=== PATIENT | female | born 1950 | race Hispanic/Latino ===

== ENCOUNTER 2017-08-23 18:40 | Observation (INO) | payer MEDICARE ==
[~2017-08-23] VITALS: Ht 162.6 cm; Wt 70.5 kg
[~2017-08-23 18:40] MED LIST: AMLO-515 PO; ASPI-1012 PO; BEPO10DR OD; FENO54TA6 PO; HYDR-309 PO; METF10004 PO; latanoprost OU
[2017-08-23] MEDS ORDERED: SODIUM CHLORIDE 0.9% 1000ML 1,000 ML IV ONE ×2 (19:39→20:32)
[2017-08-23 19:41] LABS: BASOPHILS % (AUTO) 0.4 % (0.0-5.0); EOSINOPHILS % (AUTO) 0.2 % (0.0-8.0); HEMATOCRIT 37.4 % (36-48); LYMPHOCYTES % (AUTO) 8.4 % (21.0-51.0); MEAN CORPUSCULAR HEMOGLOBIN 31.4 pg (27.0-33.0); MEAN CORPUSCULAR HGB CONC 34.5 g/dL (32.0-36.0); MEAN CORPUSCULAR VOLUME 90.8 fL (79-99); PLATELET COUNT (AUTO) 321 K/uL (130-400); RED BLOOD CELL COUNT(AUTO) 4.12 MIL/uL (4.00-5.50); WHITE BLOOD COUNT (AUTO) 8.7 K/uL (4.8-10.8)
[2017-08-23 19:52] LABS: APPEARANCE,URINE Clear (CLEAR); BILIRUBIN,URINE Negative (NEGATIVE); COLOR,URINE Yellow (YELLOW); GLUCOSE, URINE (UA) TRACE mg/dL (NEGATIVE); KETONES,URINE Negative (NEGATIVE); LEUKOCYTE ESTERASE ,URINE Trace (NEGATIVE); NITRATE,URINE Negative (NEGATIVE); OCCULT BLOOD,URINE Negative (NEGATIVE); PROTEIN,URINE Negative (NEGATIVE); UROBILINOGEN,URINE 0.2 mg/dL (0.2-1.0)
[2017-08-23 19:54] LABS: CREATININE 0.9 mg/dL (0.5-1.5); INR 0.95 (0.85-1.15); PARTIAL THROMBOPLASTIN TIME 24.2 SEC (26.3-35.5); POTASSIUM 3.1 mmol/L (3.5-5.1)
[2017-08-23] MEDS ORDERED: METOCLOPRAMIDE 10 MG/2 ML VIAL ONE (19:57)
[2017-08-23 19:58] LABS: ALBUMIN 3.9 g/dL (3.5-5.0); BILIRUBIN,TOTAL 0.2 mg/dL (0.2-1.0); TOTAL PROTEIN, SERUM 7.5 g/dL (6.0-8.3)
[2017-08-23 20:06] LABS: BACTERIA,URINE Rare /HPF (None Seen); RBC,URINE 0-1 /HPF (0-1); SQUAMOUS EPITHELIAL CELL,UR Rare /LPF (0-2)
[2017-08-23] MEDS ORDERED: POTASSIUM BICARB/CIT AC 25 MEQ TABLET.EFF ONE (20:22)
[2017-08-23] MEDS ORDERED: ONDANSETRON HCL 4 MG/2 ML VIAL ONE (20:32)
[2017-08-23] MEDS ORDERED: IOPAMIDOL-370 100 ML VIAL IV ONE (21:03)
[2017-08-23] MEDS ORDERED: ASPIRIN 325 MG TABLET ONE (22:05)
[2017-08-23] MEDS ORDERED: MAGNESIUM 2GM PREMIX 50ML 50 ML IV ONE (22:06)
[2017-08-23] MEDS ORDERED: DiphenhydrAMINE HCL 50 MG/ML VIAL ONE (22:20)
[2017-08-23] MEDS ORDERED: HYDRALAZINE HCL 20 MG/ML VIAL IV PRN (23:30)
[2017-08-23] MEDS ORDERED: ACETAMINOPHEN 325 MG TAB PO PRN ×2 (23:30)
[2017-08-23] MEDS ORDERED: LACTULOSE 20 GM/30 ML UDCUP PO PRN (23:30)
[2017-08-23] MEDS ORDERED: CEFTRIAXONE 1GM/D5W 50ML 50 ML IV SCH (23:30)
[2017-08-23] MEDS ORDERED: POTASSIUM CHLORIDE 20MEQ/100ML 100 ML IV PRN (23:30)
[2017-08-23] MEDS ORDERED: NITROGLYCERIN 0.4 MG SL TAB SL PRN (23:30)
[2017-08-23] MEDS ORDERED: KETOROLAC TROMETHAMINE 15MG/ML IV PRN (23:30)
[2017-08-23] MEDS ORDERED: GLUCAGON 1MG KIT 1 MG ML IM PRN (23:30)
[2017-08-23] MEDS ORDERED: DEXTROSE 50%-WATER 50 ML DISP.SYRIN IV PRN (23:30)
[2017-08-23] MEDS ORDERED: POTASSIUM CHLORIDE 10% ELIXIR 20 MEQ/15 ML UDCUP PO PRN (23:30)
[2017-08-23] MEDS ORDERED: LIDOCAINE HCL-MPF 1% 2ML VIAL IVP PRN (23:30)
[2017-08-23] MEDS ORDERED: MAGNESIUM SULFATE 1 GM in SODIUM CHLORIDE 0.9% 50 ML IV SCH (23:30)
[2017-08-24] VITALS (8 sets, daily range): BP systolic 136–149; BP diastolic 69–82
[2017-08-24] MEDS ORDERED: CEFTRIAXONE SODIUM 1 GM ONE (00:19)
[2017-08-24] MEDS: CEFTRIAXONE SODIUM 1 GM IVP SCH (01:00)
[2017-08-24] MEDS ORDERED: HYDROCODONE/ACETAMINOPHEN 5/325 MG TAB PO PRN (07:15)
[2017-08-24] MEDS ORDERED: MAGNESIUM 2GM PREMIX 50ML 50 ML IV SCH (07:15)
[2017-08-24] MEDS: INSULIN HUMULIN R 100 UNIT/ML 3ML SQ SCH ×4 (07:30→21:00)
[2017-08-24] MEDS: METFORMIN HCL 500 MG TABLET PO SCH ×2 (08:00→17:20)
[2017-08-24 08:37] LABS: MAGNESIUM 1.9 mg/dL (1.80-2.40); POTASSIUM 3.1 mmol/L (3.5-5.1)
[2017-08-24] MEDS: ONDANSETRON HCL 4 MG/2 ML VIAL IV PRN ×2 (08:44→18:47)
[2017-08-24] MEDS ORDERED: AMLODIPINE OLMESARTAN PO SCH (09:00)
[2017-08-24] MEDS ORDERED: BEPREVE OD SCH (09:00)
[2017-08-24] MEDS ORDERED: **HM** FENOFIBRATE 54MG PO SCH (09:00)
[2017-08-24] MEDS: FAMOTIDINE 20MG TAB 20 MG TAB PO SCH ×2 (12:44→22:06)
[2017-08-24] MEDS: POTASSIUM CHLORIDE 20 MEQ ERTAB PO PRN ×3 (12:47→22:06)
[2017-08-24] MEDS ORDERED: ASPIRIN 325 MG TABLET PO SCH (17:00)
[2017-08-24] MEDS ORDERED: LATANOPROST 2.5 ML DROPS OU SCH (21:00)
[2017-08-25] MEDS: CEFTRIAXONE SODIUM 1 GM IVP SCH (00:52)
[2017-08-25 03:30] VITALS: BP 138/66
[2017-08-25 03:57] LABS: CREATININE 0.7 mg/dL (0.5-1.5); MAGNESIUM 2.4 mg/dL (1.80-2.40); POTASSIUM 3.5 mmol/L (3.5-5.1)
[2017-08-25] MEDS: INSULIN HUMULIN R 100 UNIT/ML 3ML SQ SCH ×2 (05:52→11:30)
[2017-08-25] MEDS: POTASSIUM CHLORIDE 20 MEQ ERTAB PO PRN ×2 (06:16→08:29)
[2017-08-25] MEDS: FAMOTIDINE 20MG TAB 20 MG TAB PO SCH (08:25)
[2017-08-25] MEDS: METFORMIN HCL 500 MG TABLET PO SCH (08:25)
[2017-08-25 09:05] VITALS: BP 138/82
[2017-08-25 12:05] VITALS: BP 133/66
== END 2017-08-25 12:35 | disposition home or self-care (01) ==
LOC: EDH 18:40 → EDHIP 21:30 → 3AH 23:58
PROVIDERS: ADMIT Internal Medicine; ATTEND Internal Medicine
DX: N39.0 Urinary tract infection, site not specified (principal); E11.9 Type 2 diabetes mellitus without complications; I10 Essential (primary) hypertension; E87.6 Hypokalemia; E83.42 Hypomagnesemia; E78.5 Hyperlipidemia, unspecified; Z96.652 Presence of left artificial knee joint; Z82.49 Family history of ischemic heart disease and other diseases of the circulatory system
CPT/HCPCS: 36415 ×3; 70450; 70544; 70547; 70551; 71275; 80048; 80053; 81001; 82948 ×8; 83605 ×2; 83690; 83735 ×3; 84132; 84484; 85025; 85378; 85610; 85730; 93005; 93306; 93880; 96374; 96375 ×2; 96376; 97161; 99285; A4218; A4510; G0378 ×39; G0480; G8978; G8979; G8980; G8981; G8982; G8983; J0696 ×3; J1200; J2405 ×3; J2765; J3475 ×2; J7030 ×2; Q9967

== ENCOUNTER 2017-11-10 16:38 | Emergency (ER) | payer MEDICARE ==
[2017-11-10 17:43] LABS: BASOPHILS % (AUTO) 0.7 % (0.0-5.0); EOSINOPHILS % (AUTO) 4.5 % (0.0-8.0); HEMATOCRIT 37.6 % (36-48); LYMPHOCYTES % (AUTO) 15.5 % (21.0-51.0); MEAN CORPUSCULAR HEMOGLOBIN 31.3 pg (27.0-33.0); MEAN CORPUSCULAR VOLUME 89.3 fL (79-99); MONOCYTES % (AUTO) 8.8 % (3.0-13.0); NEUTROPHILS % (AUTO) 70.5 % (40.0-77.0); NUCLEATED RED BLOOD CELLS 0.2 % (0.0-0.19); PLATELET COUNT (AUTO) 310 K/uL (130-400); RED BLOOD CELL COUNT(AUTO) 4.21 MIL/uL (4.00-5.50); RED CELL DISTRIBUTION WIDTH 13.6 % (11.0-15.5); WHITE BLOOD COUNT (AUTO) 9.3 K/uL (4.8-10.8)
[2017-11-10] MEDS ORDERED: KETOROLAC TROMETHAMINE 30MG/ML ONE (17:47)
[2017-11-10 17:54] LABS: CREATININE 0.8 mg/dL (0.5-1.5); POTASSIUM 3.4 mmol/L (3.5-5.1)
[2017-11-10] MEDS ORDERED: DEXAMETHASONE SOD PHOSPHATE 10MG/ML 1ML VIAL ONE (18:13)
== END 2017-11-10 18:22 | disposition home or self-care (01) ==
LOC: EDH 16:38
DX: M25.461 Effusion, right knee (principal); M17.5 Other unilateral secondary osteoarthritis of knee; E11.9 Type 2 diabetes mellitus without complications; I10 Essential (primary) hypertension; E78.5 Hyperlipidemia, unspecified; Z96.652 Presence of left artificial knee joint
CPT/HCPCS: 36415; 73562; 80048; 85025; 96374; 96375; 99285; J1100; J1885

== ENCOUNTER 2020-03-25 14:04 | Observation (INO) | payer OTHER, MEDICARE ==
[~2020-03-25] VITALS: Ht 167.6 cm; Wt 77.3 kg
[~2020-03-25 14:04] MED LIST changes: +ATOR20TA65 PO; -BEPO10DR OD; +BEPO10DR OP; -HYDR-309 PO; +HYDR-4457 PO; +METF-446 PO; -METF10004 PO
[2020-03-25 14:31] LABS: BASOPHILS % (AUTO) 0.6 % (0.0-5.0); EOSINOPHILS % (AUTO) 0.5 % (0.0-8.0); HEMATOCRIT 38.5 % (36-48); LYMPHOCYTES % (AUTO) 12.2 % (21.0-51.0); MEAN CORPUSCULAR HEMOGLOBIN 31.4 pg (27.0-33.0); MEAN CORPUSCULAR HGB CONC 34.5 g/dL (32.0-36.0); MEAN CORPUSCULAR VOLUME 90.8 fL (79-99); MONOCYTES % (AUTO) 10.1 % (3.0-13.0); NEUTROPHILS % (AUTO) 76.1 % (40.0-77.0); PLATELET COUNT (AUTO) 321 K/uL (130-400); RED BLOOD CELL COUNT(AUTO) 4.24 MIL/uL (4.00-5.50); RED CELL DISTRIBUTION WIDTH 12.7 % (11.0-15.5); WHITE BLOOD COUNT (AUTO) 8.9 K/uL (4.8-10.8)
[2020-03-25 14:40] LABS: POTASSIUM 3.5 mmol/L (3.5-5.1)
[2020-03-25 14:44] LABS: ALBUMIN 4.2 g/dL (3.5-5.0); BILIRUBIN,TOTAL 0.3 mg/dL (0.2-1.0); TOTAL PROTEIN, SERUM 7.9 g/dL (6.0-8.3)
[2020-03-25 14:58] LABS: B-TYPE NATRIURETIC PEPTIDE < 5 pg/mL (0-100)
[2020-03-25] MEDS ORDERED: ASPIRIN 325MG EC TAB 325 MG TABLET.DR PO ONE (15:14)
[2020-03-25] MEDS ORDERED: NITROGLYCERIN 1GM/1 INCH PACKET TD ONE (15:15)
[2020-03-25] MEDS ORDERED: ACETAMINOPHEN 325 MG TAB ONE (15:15)
[2020-03-25] MEDS ORDERED: IOHEXOL 350 MG/ML 100ML INFUS..BTL IV ONE (17:04)
[2020-03-25] MEDS ORDERED: MECLIZINE HCL 25 MG TABLET ONE (18:35)
[2020-03-25] MEDS ORDERED: SODIUM CHLORIDE 0.9% 500ML 500 ML IV ONE (18:44)
[2020-03-25] MEDS ORDERED: ONDANSETRON HCL 4 MG/2 ML VIAL IVP PRN (19:45)
[2020-03-25] MEDS: SODIUM CHLORIDE 0.9% 1000ML 1,000 ML IV SCH (19:45)
[2020-03-25] MEDS ORDERED: ACETAMINOPHEN 325 MG TAB PO PRN (19:45)
[2020-03-25 22:41] LABS: APPEARANCE,URINE Clear (CLEAR); BILIRUBIN,URINE Negative (NEGATIVE); COLOR,URINE Yellow (YELLOW); GLUCOSE, URINE (UA) Negative (NEGATIVE); KETONES,URINE Negative (NEGATIVE); LEUKOCYTE ESTERASE ,URINE Negative (NEGATIVE); NITRATE,URINE Negative (NEGATIVE); OCCULT BLOOD,URINE Negative (NEGATIVE); PH,URINE 5.5 (5.0-8.0); PROTEIN,URINE Negative (NEGATIVE)
[2020-03-26] VITALS (8 sets, daily range): BP systolic 134–157; BP diastolic 68–88
[2020-03-26 03:19] LABS: HEMATOCRIT 35.4 % (36-48); MEAN CORPUSCULAR HEMOGLOBIN 31.3 pg (27.0-33.0); MEAN CORPUSCULAR HGB CONC 34.2 g/dL (32.0-36.0); MEAN CORPUSCULAR VOLUME 91.5 fL (79-99); RED BLOOD CELL COUNT(AUTO) 3.87 MIL/uL (4.00-5.50); RED CELL DISTRIBUTION WIDTH 12.9 % (11.0-15.5)
[2020-03-26 03:40] LABS: ALANINE AMINOTRANSFERASE 19 U/L (12-78); ALBUMIN 3.7 g/dL (3.5-5.0); ASPARTATE AMINOTRANSFERASE 16 U/L (10-37); BILIRUBIN,TOTAL 0.6 mg/dL (0.2-1.0); CARBON DIOXIDE 25 mmol/L (21-32); CHLORIDE 106 mmol/L (101-111); CREATINE KINASE, TOTAL 65 U/L (21-232); CREATININE 0.7 mg/dL (0.5-1.5); GLOMERULAR FILTR. RATE CALC 88 mL/min (>60); GLUCOSE,RANDOM 139 mg/dL (70-105); MYOGLOBIN 26 ng/mL (10-92); POTASSIUM 3.8 mmol/L (3.5-5.1); SODIUM SERUM 141 mmol/L (136-145); TOTAL PROTEIN, SERUM 6.9 g/dL (6.0-8.3); TROPONIN I < 0.04 ng/mL (0.00-0.06); UREA NITROGEN, BLOOD 12 mg/dL (7-18)
--- NOTE | 2020-03-26 05:15 | NUR ---
PATIENT PLEASANTLY CONFUSED AT THIS TIME. REORIENTATED TO PLACE, DATE AND TIME. FOLLOWS COMMANDS. NO COMPLAINTS OF PAIN VOICED AT THIS TIME. RESP EVEN AND UNLABORED. NO SOB NOTED. O2 ON AT 2LPM VIA NASAL CANNULA. VITALS STABLE. AFEBRILE. GRAIN PROCESSOR SPOKE WITH DAUGHTER KATIE AND SISTER ABOUT PATIENT STATUS. BOTH ARE AWARE. PER FAMILY, THEY STATE SHE HAS BOUTS OF CONFUSION AT TIMES. NO SIGNS OF DISTRESS NOTED. FALL PRECAUTIONS IN PLACE DUE TO POOR SAFETY AWARENESS. BED ALARM ON. CALL LIGHT WITHIN REACH. WILL CONTINUE TO E OBSERVED. Addendum: 03/26/20 at 0518 by YULIANA PAIGE RN RN Amended: Links added.
[2020-03-26] MEDS: SODIUM CHLORIDE 0.9% 1000ML 1,000 ML IV SCH ×3 (05:45→21:21)
[2020-03-26] MEDS: PANTOPRAZOLE SODIUM 40 MG TABLET.DR PO SCH (09:56)
[2020-03-26] MEDS ORDERED: PHARMACY COMMUNICATION MISC PRN (15:15)
[2020-03-26] MEDS ORDERED: CHLORDIAZEPOXIDE HCL 25 MG CAP PO PRN (15:15)
[2020-03-26] MEDS ORDERED: HYDROCODONE/ACETAMINOPHEN 5/325 MG TAB PO PRN (15:30)
[2020-03-26] MEDS ORDERED: DIATR MEGLU/DIATRIZOATE SODIUM 30 ML BOTTLE ONE (15:57)
--- NOTE | 2020-03-26 16:00 | NUR ---
CM MET W PATIENT FOR D/C PLANNING PATIENT APPEARS CONFUSED, AND HER CONVERSATIONS ISHARD TO UNDERSTAND PATIENT STATES SHE LIVES ALONE AND SHE DRIVES HERSELF TO THE [facility], STATES DOES ALL HER OWN HOUSEWORK AND ADLS CALL TO DAUGHTER KATIE ON FACE SHEET TO CONFIRM DTER STATES YES PATIENT LIVES ALONE, BUT DTR GOES EVERY DAY TO ASSIST WITH ADLS AND HOUSEWORK, ERRANRS, BILLS ETC. IS PROVIDER 21 HRS, BUT IS THERE ALL THE TIME ,STATES PATIENT WAS 10 YEARES AGO, DRINKS ALMOST DAILY AND IS PROBABLY FORGETFUL RELATED TO THAT. HAS TROUBLE CARRYING A CONVERSATION FOR A WHILE. KATIE STATES PLAN WILL BE FOR PATIENT TO RETURN TO SAME SETTING. CM TO FOLLOW
[2020-03-26] MEDS: INSULIN HUMULIN R 100 UNIT/ML 3ML SQ SCH ×2 (16:30→21:00)
--- NOTE | 2020-03-26 16:33 | NUR ---
RD NOTIFICATION Pt admitted for Vertigo. 75gm CC, Heart Healthy diet order in place. History of DM. RD notification for poor PO intake. Overweight status, okay for age. LBM 03/25. PMH R/L-TKA, HTN, DM. Monitored labs: BG 139. Recommend Glucerna BID Recommend continue current diet order RD to continue to monitor. Please notify as additional nutrition concerns arise. Thank you.
[2020-03-26] MEDS: THIAMINE HCL 100 MG, FOLIC ACID 1 MG, M.V.I. IV [ADULT] 10 ML in SODIUM CHLORIDE 0.9% 1... IV SCH (17:37)
[2020-03-26] MEDS ORDERED: ATORVASTATIN CALCIUM 20 MG TABLET PO SCH (21:00)
[2020-03-26] MEDS: BEPOTASTINE BESILATE OP SCH (21:00)
[2020-03-26] MEDS ORDERED: ***HM***(Fenofibrate 54 MG) PO SCH (21:00)
[2020-03-26] MEDS ORDERED: LATANOPROST 2.5 ML DROPS OU SCH (21:00)
--- NOTE | 2020-03-26 22:56 | NUR ---
NOTE 2240 PATIENT GETS UP WITHOUT CALLING. BED ALARM HAS BEEN WARNING STAFF OF THIS BEHAVIOR. PATIENT SAYS SHE NEED TO GO TO BATHROOM. ASSISTED HER THERE. WHEN DONE WAS ASSISTING HER BACK WHEN SHE SUDDENLY TURNED AND LOST HER BALANCE. TRIED TO HELP HER BUT WAS ONLY ABLE TO ASSIST HER TO FLOOR. TRIED TO HAVE PATIENT STAND, BUT SHE WAS NOT ABLE. GOT MORE HELP AND SHE WAS THEN ABLE TO STAND AND WALK THE REST OF THE WAY TO BED. ASSESED HER AND SAW NO OBVIOUS INJURY OR BRUISING. PATIENT SAYS IT HURT AT TIME OF FALL, BUT HAS NO PAIN NOW. BP 159/82 HR 92 RR 20 O2 SAT 97%. REORIENTED HER AGAIN TO PLACE AND SITUATION. EXPLAINED AGAIN THE USE OF CALL LIGHT. ACTIVATED BED ALARM. 2247 CONTACTED [facility]. ARCHIE ESPINO NP MAGNETIC LOCATER. UPON CALL BACK NOTIFIED HIM OF ABOVE. NO NEW ORDERS. SAID TO CONTACT IF ANY CHANGES. 2249 TRIED TO NOTIFY [facility] REP. NO ANSWER AT THIS TIME. 2255 NOTIFIED ELSIE SHIPLEY RNCAR SEAT MAKER. 6381 UPDATED FAMILY. SPOKE WITH SON FRANCIS BABCOCK.
[2020-03-27 00:04] VITALS: BP 162/79
[2020-03-27 04:04] VITALS: BP 150/77
[2020-03-27 05:15] LABS: BASOPHILS % (AUTO) 0.6 % (0.0-5.0); EOSINOPHILS % (AUTO) 2.7 % (0.0-8.0); HEMATOCRIT 36.4 % (36-48); MEAN CORPUSCULAR HEMOGLOBIN 31.8 pg (27.0-33.0); MEAN CORPUSCULAR HGB CONC 34.3 g/dL (32.0-36.0); MEAN CORPUSCULAR VOLUME 92.6 fL (79-99); MONOCYTES % (AUTO) 12.3 % (3.0-13.0); NEUTROPHILS % (AUTO) 65.1 % (40.0-77.0); PLATELET COUNT (AUTO) 261 K/uL (130-400); RED BLOOD CELL COUNT(AUTO) 3.93 MIL/uL (4.00-5.50); RED CELL DISTRIBUTION WIDTH 12.8 % (11.0-15.5); WHITE BLOOD COUNT (AUTO) 6.3 K/uL (4.8-10.8)
[2020-03-27 05:46] LABS: CREATININE 0.6 mg/dL (0.5-1.5); MAGNESIUM 1.8 mg/dL (1.80-2.40); PHOSPHORUS 3.2 mg/dL (2.5-4.9); POTASSIUM 3.4 mmol/L (3.5-5.1)
[2020-03-27] MEDS: INSULIN HUMULIN R 100 UNIT/ML 3ML SQ SCH ×3 (06:10→16:30)
[2020-03-27 08:25] VITALS: BP 155/65
[2020-03-27] MEDS: BEPOTASTINE BESILATE OP SCH (09:00)
[2020-03-27] MEDS ORDERED: [UNRECOGNIZED DRUG - OTHER] PO SCH (09:00)
[2020-03-27] MEDS ORDERED: OLMESARTAN PO SCH (09:00)
[2020-03-27] MEDS: PANTOPRAZOLE SODIUM 40 MG TABLET.DR PO SCH (09:16)
[2020-03-27 11:35] VITALS: BP 145/81
[2020-03-27] MEDS: SODIUM CHLORIDE 0.9% 1000ML 1,000 ML IV SCH (11:45)
[2020-03-27 16:19] VITALS: BP 146/65
[2020-03-27] MEDS: THIAMINE HCL 100 MG, FOLIC ACID 1 MG, M.V.I. IV [ADULT] 10 ML in SODIUM CHLORIDE 0.9% 1... IV SCH (16:53)
[2020-03-27] MEDS ORDERED: POTASSIUM CHLORIDE 20 MEQ ERTAB PO SCH (18:00)
[2020-03-27] MEDS ORDERED: MAGNESIUM OXIDE 400 MG TABLET PO SCH (18:00)
--- NOTE | 2020-03-27 18:09 | NUR ---
D/C PAPERWORK COMPLETE, PT STATED UNDERSTANDING OF ALL D/C INSTRUCTIONS ON F/U W/ PCP DR MARTIN IN 3-5 DAYS AND TO STOP TAKING THE HOME MEDICATION [place]; I HAVE ALSO CALLED HER SON AND GIVEN HIM THE D/C INSRUCTIONS AND HE IS ON HIS WAY TO COME AND PICK HER UP; PT IV ACCESS REMOVED EARLIER IN THE DAY.
== END 2020-03-27 18:30 | disposition home or self-care (01) ==
LOC: EDH 14:04 → EDHIP 19:00 → 3AH 22:33
PROVIDERS: ADMIT Internal Medicine; ATTEND Internal Medicine
DX: R10.9 Unspecified abdominal pain (principal); R42 Dizziness and giddiness; F03.90 Unspecified dementia, unspecified severity, without behavioral disturbance, psychotic disturbance, mood disturbance, and anxiety; E11.9 Type 2 diabetes mellitus without complications; I10 Essential (primary) hypertension; E78.5 Hyperlipidemia, unspecified; F10.10 Alcohol abuse, uncomplicated; I25.10 Atherosclerotic heart disease of native coronary artery without angina pectoris; Z79.899 Other long term (current) drug therapy; Y90.9 Presence of alcohol in blood, level not specified
CPT/HCPCS: 36415 ×3; 70450; 71045; 71275; 74176; 80048; 80053 ×2; 81003; 82550 ×2; 82948 ×5; 83690; 83735 ×2; 83874; 83880; 84100 ×2; 84484 ×4; 85025 ×2; 85027; 85378; 87426; 93005; 93880; 93970; 96361; 96365; 96366 ×2; 99285; G0378 ×6; J3411 ×2; J3490 ×2; J7030 ×2; J7040; Q9963; Q9967